=== PATIENT | male | born 1975 | race Caucasian/White ===

== ENCOUNTER 2016-08-13 10:46 | Emergency (ER) | payer MEDICARE, OTHER ==
[2016-08-13 12:47] LABS: HEMOGLOBIN 14.4 gm/dl (14.0-17.5); RED BLOOD COUNT 4.7 M/UL (4.20-5.50)
[2016-08-13 13:22] LABS: BUN/CREATININE RATIO 20 (0-10)
== END 2016-08-13 15:00 | disposition home or self-care (01) ==
LOC: ER1 10:46
PROVIDERS: Emergency Medicine
DX: R07.2 Precordial pain (principal); R07.89 Other chest pain; R53.1 Weakness; R42 Dizziness and giddiness; F17.200 Nicotine dependence, unspecified, uncomplicated
CPT/HCPCS: 36415; 71010; 80053; 82550; 82553; 83874; 84484; 85025; 99285

== ENCOUNTER → 2016-09-14 | Outpatient (CLI) | payer MEDICARE, OTHER | LOC: HEART 5 08-24 08:30 | DX: R07.9 Chest pain, unspecified (principal); R00.2 Palpitations | CPT/HCPCS: 78452; A9502; J2785 ==

== ENCOUNTER 2021-05-05 08:03 | Inpatient (IN) | payer MEDICARE ==
[~2021-05-05] VITALS: Ht 203.2 cm; Wt 108.9 kg
[~2021-05-05 08:03] MED LIST: AMOXICILLIN875 MG PO; BUTALB-ACETAMI1 EAC1 PO; FLEXERIL 10 MG10 MG PO; IBU600 MG PO; IBUPROFEN600 MG PO; ONDANSETRON ODT4 MG PO; PENVEE K 500 M500 MG PO; PREDNISONE20 MG PO; ZYRTEC10 MG PO
[2021-05-05 08:52] LABS: HEMOGLOBIN 13.2 gm/dl (14.0-17.5); RED BLOOD COUNT 4.29 M/UL (4.20-5.50); WHITE BLOOD COUNT 14.3 K/UL (4.5-11.0)
[2021-05-05 09:17] LABS: BUN/CREATININE RATIO 14 (0-10)
[2021-05-05] MEDS ORDERED: ESOMEPRAZOLE MA40 MG PO (14:53)
[2021-05-05] MEDS ORDERED: VIAGRA100 MG PO (14:55)
[2021-05-05] MEDS ORDERED: TYLENOL325 M1 PO (14:55)
[2021-05-05] MEDS ORDERED: ALEVE220 MG PO (14:56)
[2021-05-06 02:17] LABS: HEMOGLOBIN 13.3 gm/dl (14.0-17.5); RED BLOOD COUNT 4.25 M/UL (4.20-5.50); WHITE BLOOD COUNT 14.8 K/UL (4.5-11.0)
[2021-05-06 02:35] LABS: BUN/CREATININE RATIO 30 (0-10)
[2021-05-07 03:46] LABS: HEMOGLOBIN 11.8 gm/dl (14.0-17.5)
[2021-05-07 03:48] LABS: RED BLOOD COUNT 3.81 M/UL (4.20-5.50)
[2021-05-07 04:07] LABS: BUN/CREATININE RATIO 29 (0-10)
--- NOTE | 2021-05-07 20:05 | NUR ---
REPORT CALLED TO [facility] ON MED SURG. ALL QUESTION AND POC RELAYED. PT LEFT WITH TECH VIA WHEELCHAIR TO 4TH FLOOR.
[2021-05-08] MEDS ORDERED: ELIQUIS 5 MG TAB5 MG PO (11:15)
[2021-05-08] MEDS ORDERED: ELIQUIS5 MG PO (11:15)
== END 2021-05-08 13:57 | disposition home or self-care (01) | DRG 176 ==
LOC: ER1 08:03 → CDU 12:00 → PROG CARE 15:06 → MED SURG 4 05-07 20:28
PROVIDERS: Student in an Organized Health Care Education/Training Program; ADMIT Internal Medicine Infectious Disease
PROC: B24BZZ4 Ultrasonography of Heart with Aorta, Transesophageal (ICD-10-PCS; principal; 2021-05-06)
DX: I26.99 Other pulmonary embolism without acute cor pulmonale (principal); I82.431 Acute embolism and thrombosis of right popliteal vein; F17.210 Nicotine dependence, cigarettes, uncomplicated; R51.9 Headache, unspecified; Z20.822 Contact with and (suspected) exposure to COVID-19; D72.829 Elevated white blood cell count, unspecified; K21.9 Gastro-esophageal reflux disease without esophagitis; I10 Essential (primary) hypertension; F43.9 Reaction to severe stress, unspecified; Z87.820 Personal history of traumatic brain injury; Z79.899 Other long term (current) drug therapy; Z83.3 Family history of diabetes mellitus; Z98.890 Other specified postprocedural states; Z79.01 Long term (current) use of anticoagulants
CPT/HCPCS: ECHO; 36415; 70450; 71045; 80048; 80053; 82550; 82553; 83690; 83874; 84466; 84484; 85025; 85379; 85610; 85730; 93005; 93306; 93970; 96374; 96375; 99285; G0378; J1644; J1650; J1885; J2270; J2405; Q0177; Q9967; U0002